=== PATIENT | female | born 1980 | race Caucasian/White ===

== ENCOUNTER → 2023-12-03 | Emergency (ER) | payer OTHER ==
[~2023-12-03] VITALS: Ht 152.4 cm; Wt 48.2 kg
[2023-12-03 15:14] VITALS: BP 124/99; PULSE 99; RESP 18; TEMP 99.2; O2SAT 98
[2023-12-03] MEDS: acetaminophen 325mg tablet PO ONE (15:35)
== END | disposition home or self-care (01) ==
LOC: ER 15:14
DX: S63.283A Dislocation of proximal interphalangeal joint of left middle finger, initial encounter (principal); X58.XXXA Exposure to other specified factors, initial encounter; Y93.89 Activity, other specified; Y92.89 Other specified places as the place of occurrence of the external cause; Y99.8 Other external cause status
CPT/HCPCS: 26770; 73140; 99284